=== PATIENT | male | born 1955 | race Caucasian/White ===

== ENCOUNTER 2022-11-11 20:58 | Emergency (ER) | payer OTHER ==
[~2022-11-11] VITALS: Ht 172.7 cm; Wt 97.2 kg
--- NOTE | 2022-11-11 21:22 | NUR ---
Patient arrived via ambulance from home with c/o syncopal episode s/p smoking weed. Assisted into gown and placed on monitor, IVF infusing from field. Patient is a/o x4, no voiced c/o pain or discomfort, no s/s of any distress noted. Patient with right chest wall alverto cath in place, left upper arm fistula intact. lungs are clear, abd obese hypo bowel sounds and non tender to palpation, BLE discoloration noted. Patient informed of plan of care, awaiting med exam.
[2022-11-11] MEDS ORDERED: ISOS60TA72 PO (21:27)
[2022-11-11] MEDS ORDERED: ASPI81TA31 PO (21:27)
[2022-11-11] MEDS ORDERED: GLIP5TAB13 PO (21:27)
[2022-11-11] MEDS ORDERED: CARV12.52 PO (21:27)
[2022-11-11] MEDS ORDERED: MIDO5TAB5 PO (21:27)
[2022-11-11] MEDS ORDERED: HYDR-894 PO (21:27)
[2022-11-11] MEDS ORDERED: ASCO500C17 PO (21:27)
[2022-11-11] MEDS ORDERED: FOLI1TAB94 PO (21:27)
--- NOTE | 2022-11-11 21:41 | NUR ---
Bedside EKG done for MD review. lab at bedside.
[2022-11-11 21:51] LABS: HEMATOCRIT 33.1 % (36.7-47.1); MEAN CORPUSCULAR HEMOGLOBIN 31.6 uug (23.8-33.4); MEAN CORPUSCULAR VOLUME 96.3 fL (73.0-96.2); PLATELET COUNT (AUTO) 89 K/uL (152-348)
[2022-11-11 22:00] LABS: CARBON DIOXIDE 31 mmol/L (21-32); CHLORIDE 104 mmol/L (98-107); CREATININE 7.3 mg/dL (0.6-1.3); GLUCOSE 112 mg/dL (74-106); POTASSIUM 4.7 mmol/L (3.5-5.1); UREA NITROGEN, BLOOD 47 mg/dL (7-18)
[2022-11-11 22:09] LABS: ALANINE AMINOTRANSFERASE 53 U/L (16-63); ALKALINE PHOSPHATASE 230 U/L (50-136); ASPARTATE AMINOTRANSFERASE 46 U/L (15-37); BILIRUBIN,DIRECT 0.3 mg/dL (0.0-0.2); BILIRUBIN,TOTAL 0.9 mg/dL (0.2-1.0); TOTAL PROTEIN, SERUM 6.3 g/dL (6.4-8.2)
--- NOTE | 2022-11-12 01:50 | NUR ---
Patient resting at this time, no voiced c/o pain or discomfort at this time. Awaiting MD re-eval.
--- NOTE | 2022-11-12 02:19 | NUR ---
[facility] AT [facility], AWAITING CALL BACK.
--- NOTE | 2022-11-12 03:11 | NUR ---
PATIENT CONTINUES TO REST WITHOUT ANY C/O PAIN OR DISCOMFORT, INFORMED WILL TRANSFER TO [facility], AWAITING ROOM ASSIGNMENT.
--- NOTE | 2022-11-12 04:01 | NUR ---
Rhys from [facility] called back with transfer information. Patient will be going to [facility] room 5107 bed A. Accepting MD is Karol Chamorro ETA berry picker by [facility] ambulance is [id number]. Call for report is .
--- NOTE | 2022-11-12 05:40 | NUR ---
Patient sleeping, remains easy to arouse, no voiced c/o pain or discomfort at this time. informed [facility] pick-up will be @ 1400.
--- NOTE | 2022-11-12 07:13 | NUR ---
REPORT GIVEN TO A[place], PATIENT REMAINS STABLE.
--- NOTE | 2022-11-12 08:20 | NUR ---
Pt sleeping with no s/s of acute distress noted. Pending transfer to [facility].
--- NOTE | 2022-11-12 10:00 | NUR ---
SBAR report given to VEENA Kang at [facility] ([phone]) via telephone.
--- NOTE | 2022-11-12 10:21 | NUR ---
Pt trans to [facility] via [facility] ambulance.
== END 2022-11-12 10:21 | disposition short-term general hospital (02) ==
LOC: ER 20:58
DX: R55 Syncope and collapse (principal); D69.6 Thrombocytopenia, unspecified; D64.9 Anemia, unspecified; R00.1 Bradycardia, unspecified; E11.22 Type 2 diabetes mellitus with diabetic chronic kidney disease; N18.6 End stage renal disease; Z99.2 Dependence on renal dialysis; Z79.84 Long term (current) use of oral hypoglycemic drugs; Z79.899 Other long term (current) drug therapy; Z88.0 Allergy status to penicillin; F12.90 Cannabis use, unspecified, uncomplicated; Z20.822 Contact with and (suspected) exposure to COVID-19
CPT/HCPCS: 36415; 71045; 83605; 84484; 85025; 85730; 86850; 86900; 86901; 87040; 93005; A4663